=== PATIENT | female | born 2000 | race Caucasian/White ===

== ENCOUNTER 2021-02-06 10:24 | Outpatient (CLI) | payer BC | END 2021-02-06 10:25 | disposition home or self-care (01) | LOC: CSHMRI 10:24 | PROVIDERS: ATTEND Psychiatry & Neurology Neurology | DX: G40.209 Localization-related (focal) (partial) symptomatic epilepsy and epileptic syndromes with complex partial seizures, not intractable, without status epilepticus (principal) | CPT/HCPCS: 70553 ==

== ENCOUNTER 2021-09-03 12:10 | Emergency (ER) | payer BC, OTHER | END 2021-09-03 12:55 | disposition home or self-care (01) | LOC: CSHERS 12:10 | DX: J45.901 Unspecified asthma with (acute) exacerbation (principal); F17.290 Nicotine dependence, other tobacco product, uncomplicated; G40.909 Epilepsy, unspecified, not intractable, without status epilepticus; M79.7 Fibromyalgia; Z79.899 Other long term (current) drug therapy | CPT/HCPCS: 99284 ==

== ENCOUNTER 2021-10-07 12:55 | Emergency (ER) | payer OTHER | END 2021-10-07 17:52 | disposition home or self-care (01) | LOC: CSHERS 12:55 | DX: S09.90XA Unspecified injury of head, initial encounter (principal); H53.8 Other visual disturbances; F17.290 Nicotine dependence, other tobacco product, uncomplicated; J45.909 Unspecified asthma, uncomplicated; W22.8XXA Striking against or struck by other objects, initial encounter | CPT/HCPCS: 70450; 70551 ==

== ENCOUNTER 2023-09-05 16:25 | Emergency (ER) | payer OTHER ==
[2023-09-05] MEDS ORDERED: Dexamethasone 10 MG/ML VIAL ONE (19:14)
[2023-09-05] MEDS ORDERED: Ipratropium/Albuterol 3 ML NEB ONE (19:28)
[2023-09-05 19:43] LABS: SARS-CoV-2 NAA Rapid Test Not Detected (NotDetected)
== END 2023-09-05 20:48 | disposition home or self-care (01) ==
LOC: CSHERS 16:25
DX: R05.9 Cough, unspecified (principal); J45.909 Unspecified asthma, uncomplicated; F17.210 Nicotine dependence, cigarettes, uncomplicated; Z20.822 Contact with and (suspected) exposure to COVID-19
CPT/HCPCS: 71045; 93005; 93010; 94640; 94760; 96372; J1100; J7620